=== PATIENT | female | born 2000 | race Hispanic/Latino ===

== ENCOUNTER 2019-05-09 16:58 | Emergency (ER) | payer SELFPAY ==
[~2019-05-09] VITALS: Ht 160 cm; Wt 59.0 kg
[2019-05-09] MEDS ORDERED: CYCLOBENZAPRINE HCL 10 MG TAB PO ONE (17:15)
[2019-05-09] MEDS ORDERED: HYDROCODONE/APAP 7.5MG-325MG 1 EA TAB PO PRN (17:15)
[2019-05-09] MEDS ORDERED: KETOROLAC TROMETHAMINE 60 MG/2 ML VIAL IM ONE (17:15)
--- NOTE | 2019-05-09 17:34 | Diagnostic Imaging Report ---
Exam: Chest radiograph Clinical History: Chest pain Findings: The cardiomediastinal silhouette and lungs are normal. The regional skeleton and soft tissue are unremarkable. There is no evidence of pleural effusion or pneumothorax. Impression: No radiographic evidence of acute cardiopulmonary disease. Signed by: Dr. Carlos Hernandez MD on 05/09/2019 5:31 PM
[2019-05-09 18:21] VITALS: BP 122/84
== END 2019-05-09 18:22 | disposition home or self-care (01) ==
LOC: ER 16:58
DX: R07.89 Other chest pain (principal)
CPT/HCPCS: 71046; 93005; 99284; J1885